=== PATIENT | female | born 1945 | race Caucasian/White ===

== ENCOUNTER 2018-01-17 11:19 | Inpatient (IN) | payer MEDICARE, OTHER ==
[~2018-01-17] VITALS: Ht 170.2 cm; Wt 54.0 kg
[2018-01-17] VITALS (22 sets, daily range): BP systolic 106–140; BP diastolic 48–80
[2018-01-17] MEDS ORDERED: pantoprazole IV 80 MG in normal saline 100ml IV soln 100 ML IV ONE (12:00)
[2018-01-17] MEDS ORDERED: ondansetron/PF 4mg/2ml inj IV ONE (12:00)
[2018-01-17] MEDS ORDERED: pantoprazole 40MG/NS 100ML BAG 100 ML IV ONE (12:05)
[2018-01-17 12:29] LABS: BASOPHILS % (AUTO) 0.3 % (0-1); EOSINOPHILS % (AUTO) 0.6 % (0-6); HEMOGLOBIN 7.1 g/dl (12.0-16.0); LYMPHOCYTES # (AUTO) 1.3 X10'3 (1.1-4.8); LYMPHOCYTES % (AUTO) 18.1 % (21-51); MEAN CORPUSCULAR HEMOGLOBIN 29.8 PG (27.0-31.0); MEAN CORPUSCULAR HGB CONC 33.2 % (33.0-36.5); MEAN CORPUSCULAR VOLUME 89.8 FL (78-98); MEAN PLATELET VOLUME 8.4 FL (7.4-10.4); MONOCYTES # (AUTO) 0.5 X10'3 (0-0.9); MONOCYTES % (AUTO) 6.2 % (2-12); NEUTROPHILS # (AUTO) 5.5 X10'3 (1.8-7.7); NEUTROPHILS % (AUTO) 74.8 % (42-75); PLATELET COUNT 222 X10'3 (140-440); RED BLOOD COUNT 2.38 X10'6 (4.20-5.60); WHITE BLOOD COUNT 7.3 X10'3 (4.5-11.0)
[2018-01-17] MEDS ORDERED: pantoprazole 40MG/NS 100ML BAG 100 ML IV SCH ×2 (12:30→21:00)
[2018-01-17 12:37] LABS: HEMATOCRIT 21.4 % (35.0-45.0)
[2018-01-17 12:40] LABS: PROTHROMBIN TIME 10.1 SECONDS (9.0-12.0)
[2018-01-17] MEDS ORDERED: tranexamic acid 100mg/ml inj. IV ONE (12:40)
[2018-01-17 12:42] LABS: ALANINE AMINOTRANSFERASE 20 U/L (12-78); ALBUMIN 3.9 G/DL (3.4-5.0); ALBUMIN/GLOBULIN RATIO 1.1 (1.1-1.5); ALKALINE PHOSPHATASE 63 IU/L (46-116); ANION GAP 7 (8-16); ASPARTATE AMINO TRANSFERASE 28 U/L (10-37); BILIRUBIN,TOTAL 0.3 MG/DL (0.1-1.0); BLOOD UREA NITROGEN 28 MG/DL (7-18); BUN/CREATININE RATIO 26.7 (6.6-38.0); CALCIUM 9.5 MG/DL (8.5-10.1); CHLORIDE 102 MMOL/L (99-107); CREATININE 1.05 MG/DL (0.40-0.90); GLUCOSE 98 MG/DL (70-104); LIPASE 263 U/L (73-393); POTASSIUM 3.9 MMOL/L (3.5-5.1); SODIUM 138 MMOL/L (135-145); TOTAL CARBON DIOXIDE 28.6 MMOL/L (24-32); TOTAL PROTEIN 7.4 G/DL (6.4-8.2); eGFR 52 ML/MIN
[2018-01-17] MEDS ORDERED: NORMAL SALINE IV ONE (12:45)
[2018-01-17] MEDS ORDERED: TRANEXAMIC ACID IV ONE (12:45)
[2018-01-17] MEDS ORDERED: fentaNYL/PF 50MCG/1 ML 2ML syringe ONE (14:40)
[2018-01-17] MEDS ORDERED: MIDAZolam 5mg/5ml vial ONE (14:40)
[2018-01-17] MEDS ORDERED: LIDOcaine Viscous 15ml cup ONE (14:41)
[2018-01-17] MEDS ORDERED: acetaminophen 325mg tablet PO PRN ×2 (14:50)
[2018-01-17] MEDS ORDERED: morphine 2 MG/ML inj. syringe IV PRN (14:50)
[2018-01-17] MEDS ORDERED: magnesium hydroxide 30ml (MOM) UD suspension PO PRN (14:50)
[2018-01-17] MEDS ORDERED: ondansetron/PF 4mg/2ml inj IV PRN (14:50)
[2018-01-17] MEDS ORDERED: magnesium 1gm/100ml D5W IVPB 100 ML IV PRN (14:50)
[2018-01-17] MEDS ORDERED: potassium Cl 40MEQ/NS 500ml 500 ML IV PRN ×2 (14:50)
[2018-01-17] MEDS ORDERED: mag hydrox/Alum hydrox/simeth 30ml oral suspension PO PRN (14:50)
[2018-01-17] MEDS ORDERED: magnesium 4gm in 100ml NS 100 ML IV PRN (14:50)
[2018-01-17] MEDS ORDERED: magnesium Cl slow-release 64mg tablet PO PRN (14:50)
[2018-01-17] MEDS ORDERED: potassium Cl 20 mEq SR tablet PO PRN ×2 (14:50)
[2018-01-17] MEDS ORDERED: NO HOME MEDS (15:39)
[2018-01-17] MEDS: normal saline 1000ml 1,000 ML IV SCH (17:24)
[2018-01-17] MEDS: pantoprazole 40MG/NS 100ML BAG 100 ML IV SCH ×2 (18:02→23:10)
[2018-01-17] MEDS ORDERED: temazepam 15mg capsule PO PRN (21:00)
[2018-01-18] VITALS: BP 133/71
[2018-01-18] MEDS: normal saline 1000ml 1,000 ML IV SCH ×2 (03:00→10:46)
[2018-01-18] MEDS: pantoprazole 40MG/NS 100ML BAG 100 ML IV SCH ×3 (03:03→11:00)
[2018-01-18] MEDS: HYDROcodone/acetaminophen 5mg/325mg tablet PO PRN ×2 (04:05→12:46)
[2018-01-18 05:05] LABS: BASOPHILS % (AUTO) 0.4 % (0-1); EOSINOPHILS % (AUTO) 0.1 % (0-6); HEMATOCRIT 22.8 % (35.0-45.0); HEMOGLOBIN 7.4 g/dl (12.0-16.0); LYMPHOCYTES # (AUTO) 1.5 X10'3 (1.1-4.8); LYMPHOCYTES % (AUTO) 22.8 % (21-51); MEAN CORPUSCULAR HEMOGLOBIN 28.1 PG (27.0-31.0); MEAN CORPUSCULAR HGB CONC 32.5 % (33.0-36.5); MEAN CORPUSCULAR VOLUME 86.4 FL (78-98); MEAN PLATELET VOLUME 8.6 FL (7.4-10.4); MONOCYTES # (AUTO) 0.4 X10'3 (0-0.9); MONOCYTES % (AUTO) 6.6 % (2-12); NEUTROPHILS # (AUTO) 4.5 X10'3 (1.8-7.7); NEUTROPHILS % (AUTO) 70.1 % (42-75); PLATELET COUNT 150 X10'3 (140-440); RED BLOOD COUNT 2.64 X10'6 (4.20-5.60); RED CELL DISTRIBUTION WIDTH 20.2 % (11.5-14.5); WHITE BLOOD COUNT 6.5 X10'3 (4.5-11.0)
[2018-01-18 05:26] LABS: ANION GAP 7 (8-16); BLOOD UREA NITROGEN 16 MG/DL (7-18); BUN/CREATININE RATIO 17.4 (6.6-38.0); CALCIUM 7.9 MG/DL (8.5-10.1); CHLORIDE 106 MMOL/L (99-107); CREATININE 0.92 MG/DL (0.40-0.90); GLUCOSE 92 MG/DL (70-104); MAGNESIUM 1.6 MG/DL (1.5-2.4); POTASSIUM 3.7 MMOL/L (3.5-5.1); SODIUM 138 MMOL/L (135-145); TOTAL CARBON DIOXIDE 24.6 MMOL/L (24-32); eGFR 60 ML/MIN
[2018-01-18 07:00] VITALS: BP 115/72
[2018-01-18] MEDS: K and/or MAG REPLACEMENT MC SCH (08:00)
[2018-01-18] MEDS ORDERED: magnesium 2GM in 50ml NS 50 ML IV PRN (09:47)
[2018-01-18 11:00] VITALS: BP 124/72
[2018-01-18 16:20] LABS: BASOPHILS % (AUTO) 0.8 % (0-1); EOSINOPHILS % (AUTO) 0.1 % (0-6); HEMOGLOBIN 7.9 g/dl (12.0-16.0); LYMPHOCYTES # (AUTO) 1.7 X10'3 (1.1-4.8); LYMPHOCYTES % (AUTO) 30.3 % (21-51); MEAN CORPUSCULAR HEMOGLOBIN 28.5 PG (27.0-31.0); MEAN CORPUSCULAR HGB CONC 32.7 % (33.0-36.5); MEAN CORPUSCULAR VOLUME 87.1 FL (78-98); MEAN PLATELET VOLUME 8.8 FL (7.4-10.4); MONOCYTES # (AUTO) 0.3 X10'3 (0-0.9); MONOCYTES % (AUTO) 5.8 % (2-12); NEUTROPHILS # (AUTO) 3.5 X10'3 (1.8-7.7); PLATELET COUNT 170 X10'3 (140-440); RED BLOOD COUNT 2.75 X10'6 (4.20-5.60); RED CELL DISTRIBUTION WIDTH 20.6 % (11.5-14.5); WHITE BLOOD COUNT 5.5 X10'3 (4.5-11.0)
[2018-01-18 19:00] VITALS: BP 132/70
[2018-01-18] MEDS: pantoprazole 40mg Tablet.DR PO SCH (19:37)
[2018-01-19] VITALS: BP 141/73
[2018-01-19 06:22] LABS: BASOPHILS # (AUTO) 0.1 X10'3 (0-0.2); BASOPHILS % (AUTO) 2.7 % (0-1); EOSINOPHILS % (AUTO) 0.1 % (0-6); HEMATOCRIT 25.1 % (35.0-45.0); HEMOGLOBIN 8.3 g/dl (12.0-16.0); LYMPHOCYTES # (AUTO) 1.4 X10'3 (1.1-4.8); LYMPHOCYTES % (AUTO) 27.1 % (21-51); MEAN CORPUSCULAR HGB CONC 32.9 % (33.0-36.5); MEAN PLATELET VOLUME 9.6 FL (7.4-10.4); MONOCYTES # (AUTO) 0.3 X10'3 (0-0.9); MONOCYTES % (AUTO) 5.4 % (2-12); NEUTROPHILS # (AUTO) 3.4 X10'3 (1.8-7.7); NEUTROPHILS % (AUTO) 64.7 % (42-75); PLATELET COUNT 198 X10'3 (140-440); RED BLOOD COUNT 2.85 X10'6 (4.20-5.60); RED CELL DISTRIBUTION WIDTH 20.6 % (11.5-14.5); WHITE BLOOD COUNT 5.2 X10'3 (4.5-11.0)
[2018-01-19 06:37] LABS: ALBUMIN 3.3 G/DL (3.4-5.0); ANION GAP 6 (8-16); BLOOD UREA NITROGEN 7 MG/DL (7-18); BUN/CREATININE RATIO 6.8 (6.6-38.0); CALCIUM 8.8 MG/DL (8.5-10.1); CHLORIDE 106 MMOL/L (99-107); CREATININE 1.03 MG/DL (0.40-0.90); GLUCOSE 96 MG/DL (70-104); MAGNESIUM 1.9 MG/DL (1.5-2.4); POTASSIUM 3.6 MMOL/L (3.5-5.1); SODIUM 142 MMOL/L (135-145); TOTAL CARBON DIOXIDE 29.6 MMOL/L (24-32); eGFR 53 ML/MIN
[2018-01-19 07:00] VITALS: BP 148/71
[2018-01-19 07:40] LABS: ANISOCYTOSIS 3+; PLATELET ESTIMATE NORMAL
[2018-01-19 07:41] LABS: POLYCHROMASIA FEW
[2018-01-19] MEDS: K and/or MAG REPLACEMENT MC SCH (08:00)
[2018-01-19] MEDS: pantoprazole 40mg Tablet.DR PO SCH (09:02)
[2018-01-19 12:00] VITALS: BP 133/65
[2018-01-19] MEDS ORDERED: OMEP40CA37 PO (12:14)
[2018-01-19] MEDS ORDERED: TRAM50TA2 PO (12:14)
== END 2018-01-19 14:00 | disposition home or self-care (01) | DRG 378 ==
LOC: ER 11:20 → ED HOLD 14:51 → SUR 3N 15:53
PROVIDERS: ADMIT Internal Medicine; ATTEND Family Medicine
PROC: 0DB68ZX Excision of Stomach, Via Natural or Artificial Opening Endoscopic, Diagnostic (ICD-10-PCS; principal; 2018-01-17)
PROC: 30233N1 Transfusion of Nonautologous Red Blood Cells into Peripheral Vein, Percutaneous Approach (ICD-10-PCS; 2018-01-17)
DX: K25.0 Acute gastric ulcer with hemorrhage (principal); D62 Acute posthemorrhagic anemia; T39.395A Adverse effect of other nonsteroidal anti-inflammatory drugs [NSAID], initial encounter; E03.9 Hypothyroidism, unspecified; F17.210 Nicotine dependence, cigarettes, uncomplicated; G89.4 Chronic pain syndrome; I10 Essential (primary) hypertension; R51 Headache; K44.9 Diaphragmatic hernia without obstruction or gangrene; Z79.1 Long term (current) use of non-steroidal anti-inflammatories (NSAID); Z79.82 Long term (current) use of aspirin; Y92.89 Other specified places as the place of occurrence of the external cause
CPT/HCPCS: 36415; 36430; 43239; 71045; 80048; 80053; 83690; 83735; 85025; 85610; 86885; 86900; 86901; 86920; 87070; 88305; 88342; 96365; 96375; 99152; 99285; A4620; C9113; G0378; J2250; J2405; J3010; J7030; P9016

== ENCOUNTER 2018-01-23 16:03 | Emergency (ER) | payer MEDICARE, OTHER ==
[~2018-01-23] VITALS: Ht 170.2 cm; Wt 54.5 kg
[~2018-01-23 16:03] MED LIST: OMEP40CA37 PO; TRAM50TA2 PO
[2018-01-23 16:26] VITALS: BP 176/92
[2018-01-23] MEDS ORDERED: HYDROcodone/acetaminophen 10/325mg tab PO ONE (17:00)
[2018-01-23] MEDS ORDERED: orphenadrine citrate 60mg/2ml inj. IM ONE (17:00)
[2018-01-23] MEDS ORDERED: ketorolac trometh inj. 60 MG/2 ML VIAL IM ONE (17:00)
[2018-01-23] MEDS ORDERED: ketorolac trometh. 30mg/ml inj. IM ONE (17:05)
[2018-01-23] MEDS ORDERED: ORPH100T2 PO (17:13)
[2018-01-23] MEDS ORDERED: HYDR-4353 PO (17:13)
== END 2018-01-23 17:36 | disposition home or self-care (01) ==
LOC: ER 16:04
DX: M43.6 Torticollis (principal); E78.00 Pure hypercholesterolemia, unspecified; F17.200 Nicotine dependence, unspecified, uncomplicated; Z79.899 Other long term (current) drug therapy
CPT/HCPCS: 96372; 99283; J1885; J2360

== ENCOUNTER 2018-07-08 11:28 | Emergency (ER) | payer MEDICARE, OTHER ==
[~2018-07-08] VITALS: Ht 170.2 cm; Wt 57.4 kg
[~2018-07-08 11:28] MED LIST changes: -OMEP40CA37 PO; +ORPH100T2 PO; -TRAM50TA2 PO
--- NOTE | 2018-07-08 12:21 | NUR ---
noah mercado in room for the assessment.
[2018-07-08] MEDS ORDERED: morphine 4 MG/ML inj SYRINge IV ONE (12:25)
[2018-07-08] MEDS ORDERED: ondansetron/PF 4mg/2ml inj IV ONE (12:25)
--- NOTE | 2018-07-08 12:33 | NUR ---
TECH IN ROOM TO DO EKG.
[2018-07-08] MEDS ORDERED: normal saline 1000ML IV soln IVB ONE (13:10)
[2018-07-08 14:02] LABS: BASOPHILS % (AUTO) 0.6 % (0-1); EOSINOPHILS % (AUTO) 0.2 % (0-6); HEMATOCRIT 39.5 % (35.0-45.0); LYMPHOCYTES # (AUTO) 1.5 X10'3 (1.1-4.8); LYMPHOCYTES % (AUTO) 22.2 % (21-51); MEAN CORPUSCULAR HEMOGLOBIN 28.6 PG (27.0-31.0); MEAN CORPUSCULAR VOLUME 86.8 FL (78-98); MEAN PLATELET VOLUME 8.1 FL (7.4-10.4); MONOCYTES # (AUTO) 0.4 X10'3 (0-0.9); MONOCYTES % (AUTO) 5.6 % (2-12); NEUTROPHILS # (AUTO) 4.9 X10'3 (1.8-7.7); NEUTROPHILS % (AUTO) 71.4 % (42-75); PLATELET COUNT 347 X10'3 (140-440); RED BLOOD COUNT 4.55 X10'6 (4.20-5.60); RED CELL DISTRIBUTION WIDTH 17.5 % (11.5-14.5); WHITE BLOOD COUNT 6.9 X10'3 (4.5-11.0)
[2018-07-08 14:10] LABS: ALANINE AMINOTRANSFERASE 21 U/L (12-78); ALBUMIN 4.7 G/DL (3.4-5.0); ALBUMIN/GLOBULIN RATIO 1.2 (1.1-1.5); ALKALINE PHOSPHATASE 104 IU/L (46-116); ANION GAP 6 (8-16); ASPARTATE AMINO TRANSFERASE 34 U/L (10-37); BILIRUBIN,TOTAL 0.3 MG/DL (0.1-1.0); BLOOD UREA NITROGEN 7 MG/DL (7-18); BUN/CREATININE RATIO 8.5 (6.6-38.0); CALCIUM 9.5 MG/DL (8.5-10.1); CHLORIDE 98 MMOL/L (99-107); CREATININE 0.82 MG/DL (0.40-0.90); GLUCOSE 91 MG/DL (70-104); POTASSIUM 4.3 MMOL/L (3.5-5.1); SODIUM 133 MMOL/L (135-145); TOTAL CARBON DIOXIDE 28.9 MMOL/L (24-32); TOTAL PROTEIN 8.6 G/DL (6.4-8.2); eGFR 69 ML/MIN
[2018-07-08] MEDS ORDERED: iohexol 300mg/ml 100ml inj. ONE (14:30)
--- NOTE | 2018-07-08 14:41 | NUR ---
Patient to CT at this time via wheelchair, no signs of distress noted.
[2018-07-08] MEDS ORDERED: ONDA4TAB6 PO (15:30)
[2018-07-08] MEDS ORDERED: HYDR-3965 PO (15:30)
[2018-07-08 16:35] VITALS: BP 167/99
== END 2018-07-08 16:36 | disposition home or self-care (01) ==
LOC: ER 11:28
DX: S22.31XA Fracture of one rib, right side, initial encounter for closed fracture (principal); E78.00 Pure hypercholesterolemia, unspecified; W18.49XA Other slipping, tripping and stumbling without falling, initial encounter; Y93.89 Activity, other specified; Y92.89 Other specified places as the place of occurrence of the external cause; Y99.9 Unspecified external cause status
CPT/HCPCS: 36415; 71260; 74177; 80053; 85025; 93005; 96374; 96375; 99284; J2270; J2405; J7030; Q9967

== ENCOUNTER 2021-11-30 19:36 | Outpatient (CLI) | payer OTHER, MEDICARE ==
[~2021-11-30 19:36] MED LIST changes: +ONDA4TAB6 PO
[2021-11-30 19:59] LABS: CLARITY,URINE SLIGHTLY CLOUDY (Clear); COLOR,URINE YELLOW (Yellow); GLUCOSE, URINE NEGATIVE (Neg); KETONES,URINE NEGATIVE (Neg); LEUKOCYTE ESTERASE ,URINE NEGATIVE (Neg); NITRITES, URINE NEGATIVE (Neg); OCCULT BLOOD,URINE TRACE-INTACT (Neg); PROTEIN,URINE TRACE mg/dl (Neg); UROBILINOGEN,URINE 0.2 E.U/dL (0.2-1.0)
[2021-11-30 20:07] LABS: UA COLLECTION TYPE STRAIGHT CATH
[2021-11-30 20:10] LABS: BACTERIA,URINE 1+ /HPF (Neg); SQUAMOUS EPITHELIAL CELL,UR FEW /LPF (FEW)
[2021-11-30 20:11] LABS: URIC ACID CRYSTALS 2+ /HPF (NEGATIVE)
== END 2021-11-30 23:59 | disposition home or self-care (01) ==
LOC: LAB SPEC 19:36
PROVIDERS: ATTEND Internal Medicine
DX: A41.9 Sepsis, unspecified organism (principal)
CPT/HCPCS: 81001; 87088